=== PATIENT | male | born 1980 | race Caucasian/White ===

== ENCOUNTER 2018-10-08 05:15 | Day surgery (SDC) | payer OTHER ==
[2018-10-08] MEDS ORDERED: CEFAZOLIN 2 GM/50 ML (PMX) 50 ML IVPB (05:30)
[2018-10-08 06:12] LABS: ADD MAN DIFF? NO
[2018-10-08] MEDS: SOD CHLORIDE 0.9% 1,000 ML IV (06:14)
[2018-10-08 06:21] LABS: WHITE BLOOD COUNT 6.4 10^3/ul (4.8-10.8)
[2018-10-08 06:21] LABS: BASOPHIL # 0.1 10^3/ul (0.0-0.1); BASOPHILS % 0.8 % (0.0-2.0); EOSINOPHILS # 0.2 10^3/ul (0.0-0.5); EOSINOPHILS % 2.8 % (0.0-7.0); HEMOGLOBIN 14.5 g/dl (14.0-18.0); LYMPHOCYTES # 1.4 10^3/ul (0.8-2.9); LYMPHOCYTES % 22.6 % (15.0-51.0); MEAN CORPUSCULAR HEMOGLOBIN 29.5 pg (29.0-33.0); MEAN CORPUSCULAR HGB CONC 33.7 g/dl (32.0-37.0); MEAN CORPUSCULAR VOLUME 87.4 fl (82.0-101.0); MEAN PLATELET VOLUME 10.1 fl (7.4-10.4); MONOCYTE # 0.9 10^3/ul (0.3-0.9); MONOCYTES % 14.6 % (0.0-11.0); NEUTROPHIL # 3.8 10^3/ul (1.6-7.5); PLATELET COUNT 233 10^3/UL (140-415); RED BLOOD COUNT 4.92 10^6/ul (4.70-6.10)
[2018-10-08 06:37] LABS: INR 0.98; PROTIME 13.1 Sec (11.9-14.9)
[2018-10-08 06:41] LABS: ALANINE AMINOTRANSFERASE 28 IU/L (13-69); ALBUMIN 3.8 g/dl (3.3-4.9); ALBUMIN/GLOBULIN RATIO 1.22; ALKALINE PHOSPHATASE 61 IU/L (42-121); ANION GAP 8 (5-13); ASPARTATE AMINO TRANSFERASE 23 IU/L (15-46); BILIRUBIN,INDIRECT 0.7 mg/dl (0-1.1); BILIRUBIN,TOTAL 0.7 mg/dl (0.2-1.3); BLOOD UREA NITROGEN 17 mg/dl (7-20); CALCIUM 9.3 mg/dl (8.4-10.2); CARBON DIOXIDE 28 mmol/L (21-31); CHLORIDE 105 mmol/L (97-110); CREATININE 0.93 mg/dl (0.61-1.24); Estimated GFR > 60 mL/min (>60); GLUCOSE 91 mg/dl (70-220); POTASSIUM 4.1 mmol/L (3.5-5.1); SODIUM 141 mmol/L (135-144); TOTAL PROTEIN 6.9 g/dl (6.1-8.1)
[2018-10-08] MEDS: BUPIVACAINE 0.25% (MPF) 30 ML INJ (07:23)
[2018-10-08] MEDS ORDERED: BACITRACIN/POLYMYXIN 28.35 GM OINT TOP (07:28)
[2018-10-08] MEDS ORDERED: hydrALAzine 20 MG INJ IV (07:30)
[2018-10-08] MEDS ORDERED: IPRATROPIUM (NEB) 0.5 MG/2.5 ML AMP HHN (07:30)
[2018-10-08] MEDS ORDERED: MIDAZOLAM 1 MG/ML 2 ML INJ IV (07:30)
[2018-10-08] MEDS ORDERED: DIPHENHYDRAMINE 50 MG INJ IV (07:30)
[2018-10-08] MEDS ORDERED: PROPOFOL 20 ML (07:30)
[2018-10-08] MEDS ORDERED: LABETALOL HCL 20MG INJ IV (07:30)
[2018-10-08] MEDS ORDERED: FENTAnyl 50 MCG/ML VIAL (07:30)
[2018-10-08] MEDS ORDERED: DEXAMETHASONE 4 MG/ML 5 ML INJ (07:30)
[2018-10-08] MEDS ORDERED: ONDANSETRON 4 MG INJ (07:30)
[2018-10-08] MEDS ORDERED: MEPERIDINE 25 MG INJ IV (07:30)
[2018-10-08] MEDS ORDERED: TRIMETHOBENZAMIDE 100 MG/ML VIAL IM (07:30)
[2018-10-08] MEDS ORDERED: MIDAZOLAM 1 MG/ML 2 ML INJ (07:30)
[2018-10-08] MEDS ORDERED: ROCURONIUM 50 MG INJ (07:30)
[2018-10-08] MEDS ORDERED: HYDROmorphONE 1 MG/5 ML IV SYRINGE IV ×3 (07:30)
[2018-10-08] MEDS ORDERED: ONDANSETRON 4 MG INJ IV (07:30)
[2018-10-08] MEDS ORDERED: FENTAnyl 50 MCG/ML VIAL IV ×3 (07:30)
[2018-10-08] MEDS ORDERED: OXYCODONE/ACETAMINOPHEN (5/325) TAB PO ×2 (07:30)
[2018-10-08] MEDS ORDERED: NEOSTIGMINE 3 MG/3 ML SYRINGE (07:30)
[2018-10-08] MEDS ORDERED: ALBUTEROL 0.083% (NEB) 2.5 MG/3 ML AMP HHN (07:30)
[2018-10-08] MEDS ORDERED: EPHEDrine 25 MG/5 ML SYG IV (07:30)
[2018-10-08] MEDS ORDERED: CEFAZOLIN 1 GM INJ (07:30)
[2018-10-08] MEDS ORDERED: GLYCOPYRROLATE 0.4 MG INJ (07:30)
== END 2018-10-08 08:58 | disposition home or self-care (01) ==
LOC: SDS 05:15
DX: R22.0 Localized swelling, mass and lump, head (principal); Z53.09 Procedure and treatment not carried out because of other contraindication
CPT/HCPCS: 80053; 85025; 85610; 85730

== ENCOUNTER 2018-11-13 05:59 | Day surgery (SDC) | payer OTHER ==
[2018-11-13] MEDS ORDERED: CEFAZOLIN 2 GM/50 ML (PMX) 50 ML IVPB (07:00)
[2018-11-13] MEDS: SOD CHLORIDE 0.9% 1,000 ML IV (07:19)
[2018-11-13] MEDS: BUPIVACAINE 0.25% (MPF) 30 ML INJ (08:01)
[2018-11-13] MEDS ORDERED: LIDOCAINE 2% (MDV) 20 ML INJ (08:07)
[2018-11-13] MEDS ORDERED: BUPIVACAINE 0.5% (SDV) 30 ML INJ (08:07)
[2018-11-13] MEDS ORDERED: CEFAZOLIN 1 GM INJ (08:25)
[2018-11-13] MEDS ORDERED: PROPOFOL 20 ML (08:25)
[2018-11-13] MEDS ORDERED: GLYCOPYRROLATE 0.4 MG INJ (08:25)
[2018-11-13] MEDS ORDERED: MIDAZOLAM 1 MG/ML 2 ML INJ (08:25)
[2018-11-13] MEDS ORDERED: FENTAnyl 50 MCG/ML VIAL ×2 (08:25→08:26)
[2018-11-13] MEDS ORDERED: FENTAnyl 50 MCG/ML VIAL IV ×3 (08:30)
[2018-11-13] MEDS ORDERED: EPHEDrine 25 MG/5 ML SYG IV (08:30)
[2018-11-13] MEDS ORDERED: hydrALAzine 20 MG INJ IV (08:30)
[2018-11-13] MEDS ORDERED: OXYCODONE/ACETAMINOPHEN (5/325) TAB PO (08:30)
[2018-11-13] MEDS ORDERED: ONDANSETRON 4 MG INJ IV (08:30)
[2018-11-13] MEDS ORDERED: METOCLOPRAMIDE 10 MG INJ IV (08:30)
[2018-11-13] MEDS ORDERED: HYDROmorphONE 1 MG/5 ML IV SYRINGE IV ×3 (08:30)
[2018-11-13] MEDS ORDERED: KETOROLAC 30 MG INJ (08:54)
[2018-11-13] MEDS ORDERED: METOCLOPRAMIDE 10 MG INJ (08:54)
[2018-11-13] MEDS ORDERED: ONDANSETRON 4 MG INJ (08:54)
[2018-11-13] MEDS ORDERED: DEXAMETHASONE 4 MG/ML 5 ML INJ (08:54)
[2018-11-13] MEDS ORDERED: IBUPROFEN 800 MG TAB PO (09:30)
== END 2018-11-13 10:45 | disposition home or self-care (01) ==
LOC: SDS 05:59
DX: L72.11 Pilar cyst (principal)
CPT/HCPCS: 14021; 88307